=== PATIENT | male | born 1965 | race Caucasian/White ===

== ENCOUNTER → 2017-03-26 | Outpatient (CLI) | payer BC ==
[2014-07-24 16:06] VITALS: BP 160/80
--- NOTE | 2017-03-26 13:30 | RAD ---
CT chest without IV contrast Indication: 52-year-old male with history of chemical use 4 years. Quit smoking 3 years ago with some difficulty breathing. No surgery to the chest Technique: CT chest without IV contrast with multiplanar reformats Comparison: Plain film from 03/31/2016 Findings: Noncontrast appearance of the neck base is within normal limits. No pathologically enlarged axillary, mediastinal or hilar adenopathy. Heart is normal in size. No pericardial or pleural effusion. No pulmonary nodules. Lungs are clear. 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 Adrenal glands show no focal lesion. No suspicious bony lesions. Impression: No pulmonary nodules. PQRS Compliance Statement: One or more of the following individualized dose reduction techniques were utilized for this examination: 1. Automated exposure control 2. Adjustment of the mA and/or kV according to patient size 3. Use of iterative reconstruction technique MTDD
== END | disposition home or self-care (01) ==
LOC: CT 08:44
PROVIDERS: ATTEND Nurse Practitioner Family
DX: Z12.2 Encounter for screening for malignant neoplasm of respiratory organs (principal); R06.02 Shortness of breath; Z72.0 Tobacco use
CPT/HCPCS: 71250

== ENCOUNTER → 2017-09-15 | Outpatient (CLI) | payer BC ==
[2014-07-24 16:06] VITALS: BP 160/80
--- NOTE | 2017-09-15 14:58 | RAD ---
Left SHOULDER , 3 VIEWS Clinical Indication: Left shoulder pain x20 years. No known injury. Comparison: None. Findings: There is no acute fracture or dislocation. The acromioclavicular and glenohumeral joints are intact. The visualized lung is clear. There is no evidence of an acute displaced rib fracture. There is no soft tissue abnormality. IMPRESSION: No acute fracture or dislocation.
== END | disposition home or self-care (01) ==
LOC: RAD 09:50
PROVIDERS: ATTEND Nurse Practitioner Family
DX: M25.512 Pain in left shoulder (principal); F17.200 Nicotine dependence, unspecified, uncomplicated
CPT/HCPCS: 73030

== ENCOUNTER → 2019-04-22 | Outpatient (CLI) | payer BC ==
[2014-07-24 16:06] VITALS: BP 160/80
--- NOTE | 2019-04-22 12:05 | RAD ---
Left lower extremity venous duplex study 04/22/2019 Clinical History: Left leg swelling. Technique: Using a combination of real time ultrasound imaging and color-flow and pulse Doppler imaging techniques along with graded compression and augmentation, duplex evaluation of the deep venous system of the left lower extremity was performed. Multiple images were obtained. Findings: There is no sonographic evidence of deep venous thrombosis involving the visualized deep venous structures of the left lower extremity. A 4 cm enlarged likely reactive left inguinal lymph node is seen. Impression: Negative study. Electronically signed by: Faizan Alvarado MD (04/22/2019 12:02 PM) [place] [id number]
== END | disposition home or self-care (01) ==
LOC: PMG 11:16
PROVIDERS: ATTEND Physician Assistant
DX: M79.89 Other specified soft tissue disorders (principal)
CPT/HCPCS: 93971

== ENCOUNTER 2019-05-05 11:34 | Inpatient (IN) | payer BC ==
[~2019-05-05] VITALS: Ht 167.6 cm; Wt 98.9 kg
[2019-05-05] MEDS ORDERED: MONT10TA80 PO (12:36)
[2019-05-05] MEDS ORDERED: ALLO300T PO (12:36)
[2019-05-05] MEDS ORDERED: OLME1TAB43 PO (12:36)
[2019-05-05] MEDS ORDERED: LEVO50TA5 PO (12:36)
[2019-05-05] MEDS ORDERED: FLUT1DIS IH (12:39)
[2019-05-05] MEDS ORDERED: VANCOMYCIN PER PHARMACY MC PRN (13:15)
[2019-05-05 13:16] LABS: BASO # 0.1 x10^3/uL (0.0-0.2); BASO % 1 % (0-3); EOS # 0.2 x10^3/uL (0.0-0.7); EOS % 2 % (0-3); HEMATOCRIT 43.3 % (39.0-53.0); HEMOGLOBIN 14.8 g/dL (13.0-17.5); LYMPH # 1.5 x10^3/uL (1.0-4.8); LYMPH % 17 % (24-48); MEAN CORPUSCULAR HEMOGLOBIN 32 pg (25-35); MEAN CORPUSCULAR HGB CONC 34 g/dL (31-37); MEAN CORPUSCULAR VOLUME 93 fL (79-100); MONO % 11 % (0-9); NEUT # 6.4 x10^3uL (1.8-7.7); NEUT % 70 % (31-73); PLATELET COUNT 316 x10^3/uL (140-400); RED BLOOD COUNT 4.67 x10^6/uL (4.30-5.70); RED CELL DISTRIBUTION WIDTH 14.8 % (11.5-14.5); WHITE BLOOD COUNT 9.1 x10^3/uL (4.0-11.0)
[2019-05-05 13:28] LABS: ALBUMIN 3.7 g/dL (3.4-5.0); CALCIUM 9.1 mg/dL (8.5-10.1); CREATININE 0.9 mg/dL (0.7-1.3); GFR 87.9; POTASSIUM 3.4 mmol/L (3.5-5.1); TOTAL BILIRUBIN 0.4 mg/dL (0.2-1.0); TOTAL PROTEIN 7.5 g/dL (6.4-8.2)
[2019-05-05 14:13] VITALS: BP 107/67
[2019-05-05] MEDS ORDERED: VANCOMYCIN 2 GM in IV NORMAL SALINE 500ML 500 ML IV ONE (14:30)
--- NOTE | 2019-05-05 15:00 | HP ---
ADMIT DATE: 05/05/2019 HISTORY OF PRESENT ILLNESS: The patient is a 54-year-old male patient who was admitted directly from his primary care physician, ____, on account of failure of outpatient treatment for his left lower extremity cellulitis that started about 2 weeks ago. He apparently was treated with Keflex and Levaquin, has also some intramuscular injection of probably Rocephin without much improvement and therefore, the patient was admitted for inpatient antibiotic therapy. The patient denied any chills, rigors, or fevers. Denied any cough, phlegm or hemoptysis. Denied any chest pain or shortness of breath. PAST MEDICAL HISTORY: Significant for hypothyroidism, hypertension, bronchial asthma, and gout. PAST SURGICAL HISTORY: Significant for right foot surgery, hernia repair and right shoulder surgery. ALLERGIES: He has no known drug allergies. MEDICATIONS: He is currently on sjkblewyph-ufpihayimr-xtybzgpaylfcaynqyaa 20-5-12.5 one tablet once a day. He is on Advair Diskus 100/50 one inhalation twice a day, montelukast sodium for Singulair 10 mg at bedtime, levothyroxine sodium 50 mcg once a day, allopurinol 300 mg once a day. FAMILY HISTORY: He has one brother ____ throat cancer. He does not know much about his older sister. His father of heart attack. Mother of Alzheimer dementia and one older brother also of lung cancer. SOCIAL HISTORY: He is , has 2 sons and 1 daughter. 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 REVIEW OF SYSTEMS: The patient denied any blurring of vision, cataract, glaucoma or macular degeneration. Denied any stuffy nose or postnasal drip. Denied any sore throat, sore tongue, toothache, hoarseness of voice or difficulty swallowing. Denied any nausea, vomiting, diarrhea or constipation. Denied any hematemesis, melena or hematochezia. Denied any dysuria, frequency, hematuria. Denied any chest pain, shortness of breath, orthopnea, paroxysmal nocturnal dyspnea. Denied any cough, phlegm or hemoptysis. Denied chills, rigors or fever. PHYSICAL EXAMINATION: GENERAL: On examining him, he looked well and was clearly in no apparent respiratory distress. No pallor, jaundice, cyanosis or thyromegaly. No jugular venous distension. No limb edema. VITAL SIGNS: His heart rate was 92, blood pressure was 128/79, temperature was 97.4, respiratory rate was 18 and oxygen saturation was 99% on room air. HEAD, EYES, EARS, NOSE AND THROAT: Showed normocephalic, atraumatic. NECK: Supple. HEART: Showed normal first and second heart sounds. No gallop or murmur. CHEST: Clear to auscultation. No crepitation or rhonchi. ABDOMEN: Distended, soft, nontender. NEUROLOGIC: He was awake, alert, responding appropriately. All cranial nerves intact. EXTREMITIES: He moves extremities without difficulty. He ambulates without assistance or assistive devices. Left lower extremity is definitely erythematous, warm to touch and more swollen than the right leg. In summary, this is a 54-year-old male patient who came in with left lower extremity cellulitis that failed outpatient treatment with multiple courses of antibiotic. He apparently has had venous Doppler ultrasound done on 04/22/2019. My plan is to start him on IV vancomycin. We will arrange for him to have another Doppler ultrasound. We will continue all his other medications and decide on further management accordingly. In summary, this is a 54-year-old with left lower extremity cellulitis. Other medical problems include hypertension, hypothyroidism, bronchial asthma, and gout. VIDHI TAYLOR MD DR: NIMO/demetrius JOB#: [id number] / [id number]
--- NOTE | 2019-05-05 15:10 | RAD ---
Examination: Left Lower Extremity Venous Doppler Ultrasound History: Left lower extremity swelling Comparison: None Procedure: Mustafa scale, color flow 2D and spectal waveform analysis images are obtained with and without compression in the area of the common femoral vein, superficial femoral vein - femoral vein junction, main femoral vein (superficial femoral vein) and popliteal vein. Veins of the proximal calf are also imaged. Findings: There is normal duplex flow, color flow and compressibility of all visualized vein segments. No evidence of deep venous thrombus is present. Multiple lymph nodes identified in the left groin. Impression: No evidence of DVT in the left lower extremity venous system. Electronically signed by: Ifeanyi Hernandez MD (05/05/2019 3:08 PM) [id number]
[2019-05-05] MEDS ORDERED: ALBUTEROL SULFATE 2.5 MG/3 ML NEBU. NEB SCH (16:00)
[2019-05-05 19:46] VITALS: BP 104/60
[2019-05-05] MEDS ORDERED: BUDESONIDE 0.5 MG/2 ML NEBU NEB SCH (20:00)
[2019-05-05] MEDS: SALMET INH SCH (20:35)
[2019-05-05] MEDS: FLUTICA INH SCH (20:35)
[2019-05-05] MEDS ORDERED: MONTELUKAST 10 MG TABLET. PO SCH (21:00)
[2019-05-05] MEDS ORDERED: NON FORMULARY ITEM (Fluticasone/Salmeterol (Advair 100-50 Diskus) 1 PUFF) IH SCH (21:00)
[2019-05-05] MEDS: VANCOMYCIN 1.5 GM in IV NORMAL SALINE 500ML 500 ML IV SCH (22:39)
[2019-05-05 23:04] VITALS: BP 131/68
[2019-05-06] MEDS ORDERED: LEVOTHYROXINE 50 MCG TABLET PO SCH ×2 (06:00→07:30)
[2019-05-06] MEDS: VANCOMYCIN 1.5 GM in IV NORMAL SALINE 500ML 500 ML IV SCH (06:24)
[2019-05-06 06:42] VITALS: BP 111/70
[2019-05-06 07:12] LABS: HEMATOCRIT 43.6 % (39.0-53.0); HEMOGLOBIN 14.7 g/dL (13.0-17.5); RED BLOOD COUNT 4.66 x10^6/uL (4.30-5.70); RED CELL DISTRIBUTION WIDTH 14.4 % (11.5-14.5); WHITE BLOOD COUNT 8.5 x10^3/uL (4.0-11.0)
[2019-05-06 07:14] LABS: CALCIUM 8.5 mg/dL (8.5-10.1); GFR 77.9; MAGNESIUM 2.2 mg/dL (1.8-2.4)
[2019-05-06] MEDS: FLUTICA INH SCH (07:55)
[2019-05-06] MEDS: SALMET INH SCH (07:55)
[2019-05-06] MEDS ORDERED: AMLOD PO SCH (09:00)
[2019-05-06] MEDS ORDERED: hydroCHLOROthiazide 12.5 MG CAPSULE PO SCH (09:00)
[2019-05-06] MEDS ORDERED: HCTZ PO SCH (09:00)
[2019-05-06] MEDS ORDERED: ALLOPURINOL 300 MG TABLET. PO SCH (09:00)
[2019-05-06] MEDS ORDERED: MONTELUKAST 10 MG TABLET. PO SCH (09:00)
[2019-05-06] MEDS ORDERED: amLODIPine BESYLATE 5 MG TABLET PO SCH (09:00)
[2019-05-06] MEDS ORDERED: [UNRECOGNIZED DRUG - OTHER] PO SCH (09:00)
[2019-05-06] MEDS ORDERED: LOSARTAN 50 MG TABLET. PO SCH (09:00)
[2019-05-06] MEDS ORDERED: SULF1TAB24 PO (09:48)
--- NOTE | 2019-05-06 09:50 | DISCH ---
DISCHARGE INSTRUCTIONS-DC Condition on Discharge Condition on Discharge: Stable Activity after Discharge Activity Instructions for Disc: No restrictions Diet after Discharge Diet Texture: Regular Contacting the DR. after DC Call your doctor for: If your condition worsens Follow-Up Follow up with: with PCP in 2 weeks QAMAR ANNE MD May 06, 2019 09:50
[2019-05-06] MEDS ORDERED: LACTOBACILLUS RHAMNOSUS GG 1 CAPSULE. PO SCH (21:00)
== END 2019-05-06 10:40 | disposition home or self-care (01) | DRG 603 ==
LOC: 1 SOUTH 11:34
PROVIDERS: ADMIT Internal Medicine; ATTEND Internal Medicine
PROC: 5A09357 Assistance with Respiratory Ventilation, Less than 24 Consecutive Hours, Continuous Positive Airway Pressure (ICD-10-PCS; principal; 2019-05-05)
DX: L03.116 Cellulitis of left lower limb (principal); I10 Essential (primary) hypertension; E03.9 Hypothyroidism, unspecified; J45.909 Unspecified asthma, uncomplicated; M10.9 Gout, unspecified; Z82.49 Family history of ischemic heart disease and other diseases of the circulatory system; Z82.0 Family history of epilepsy and other diseases of the nervous system; Z80.8 Family history of malignant neoplasm of other organs or systems; Z80.1 Family history of malignant neoplasm of trachea, bronchus and lung
CPT/HCPCS: 36415; 80048; 80053; 83735; 84550; 85025; 85027; 93971; J3370; J7040

== ENCOUNTER → 2019-11-24 | Outpatient (CLI) | payer BC ==
[~2019-11-24] MED LIST: ALLO300T PO; FLUT1DIS IH; LEVO50TA5 PO; MONT10TA80 PO; OLME1TAB43 PO; SULF1TAB24 PO
--- NOTE | 2019-11-24 12:31 | RAD ---
RIBS LEFT 3 view with PA view chest x-ray Clinical indications: Left rib pain for 2 days. No known injury. COMPARISON: March 31, 2016. Findings: There are nondisplaced fractures of the lateral aspect of the left ninth and 10th ribs. No acute lung infiltrate or pleural effusion or pulmonary edema or lung mass or pneumothorax is seen. Mild cardiomegaly is evident. The pulmonary vasculature, mediastinum and both svetlana are otherwise unremarkable. Impression: Posttraumatic acute fractures of the lateral left ninth and 10th ribs. Electronically signed by: Spenser Dela Cruz MD (11/24/2019 12:28 PM) [id number]
== END | disposition home or self-care (01) ==
LOC: PMG 11:12
PROVIDERS: ATTEND Family Medicine
DX: S22.42XA Multiple fractures of ribs, left side, initial encounter for closed fracture (principal); I51.7 Cardiomegaly; X58.XXXA Exposure to other specified factors, initial encounter; Y93.89 Activity, other specified; Y92.89 Other specified places as the place of occurrence of the external cause; Y99.8 Other external cause status
CPT/HCPCS: 71100; 71101

== ENCOUNTER → 2020-07-05 | Outpatient (CLI) | payer BC ==
--- NOTE | 2020-07-05 16:33 | RAD ---
Single AP view both knees and 2 views of the left knee without comparison for reasons unspecified. FINDINGS: There is no fracture, dislocation, or acute osseous abnormality identified. No significant degenerative changes. There is mild patellar subluxation and there is a suprapatellar joint effusion. IMPRESSION: 1. No acute osseous abnormality. 2. Suprapatellar joint effusion. Electronically signed by: Yohannes Terrell MD (07/05/2020 4:30 PM) [id number]
== END ==
LOC: DXRAD 15:19
PROVIDERS: ATTEND Physician Assistant
DX: M25.561 Pain in right knee (principal)
CPT/HCPCS: 73560; 73565

== ENCOUNTER → 2020-08-31 | Outpatient (CLI) | payer BC ==
--- NOTE | 2020-08-31 15:49 | RAD ---
EXAMINATION: XR FOOT_LEFT 2 VIEWS CLINICAL HISTORY: Left heel pain TECHNIQUE: XR FOOT_LEFT 2 VIEWS Number of Images/Views: 2 COMPARISON: 07/14/2013 FINDINGS: Redemonstration of bony fusion at the second and third PIP joints and moderate to severe degenerative changes at the second and third MCP joints, similar to prior study. Mild interphalangeal and MTP akshat nt degenerative changes otherwise. Mild degenerative changes first TMT joint. Small plantar and poste rior calcaneal enthesophytes. No acute fracture. No focal soft tissue swelling. IMPRESSION: Degenerative changes as described, greatest at the second and third MTP joints with fusion of the sec ond and third PIP joints. Electronically signed by: Jamari Edmonds DO (08/31/2020 3:46 PM) [id number]
== END ==
LOC: PMG 10:53
PROVIDERS: ATTEND Family Medicine
DX: M19.072 Primary osteoarthritis, left ankle and foot (principal)
CPT/HCPCS: 73620

== ENCOUNTER → 2021-10-10 | Outpatient (CLI) | payer BC ==
--- NOTE | 2021-10-10 15:40 | RAD ---
XR KNEE_AP BILAT STANDING, XR KNEE_LT 1-2 VIEWS Clinical Indication: Reason: CHRONIC LEFT KNEE PAIN / Comparison: None. Findings: AP bilateral knees. Left lateral and sunrise views. There is mild medial compartment narrowing of both knees. The left patella is in anatomic position. M ineralization is normal. Mild narrowing of the lateral patellofemoral compartment. There is no joint effusion. There is infrapatellar soft tissue swelling. There is no acute fracture. IMPRESSION: 1. Mild arthropathy of the left knee. 2. There is infrapatellar soft tissue swelling. Electronically signed by: Lang Powell MD (10/10/2021 3:37 PM) [id number]
== END ==
LOC: RAD 13:37
PROVIDERS: ATTEND Physician Assistant
DX: M12.862 Other specific arthropathies, not elsewhere classified, left knee (principal); M79.89 Other specified soft tissue disorders; M25.462 Effusion, left knee
CPT/HCPCS: 73560; 73565